=== PATIENT | female | born 1960 | race Caucasian/White ===

== ENCOUNTER → 2016-12-05 | Outpatient (CLI) | payer BC | LOC: WI 10:27 | PROVIDERS: ATTEND Internal Medicine | DX: Z12.31 Encounter for screening mammogram for malignant neoplasm of breast (principal); Z79.899 Other long term (current) drug therapy | CPT/HCPCS: 77067; G0202 ==

== ENCOUNTER → 2016-12-21 | Outpatient (CLI) | payer BC | LOC: WI 09:16 | PROVIDERS: ATTEND Internal Medicine | DX: N63 Unspecified lump in breast (principal) | CPT/HCPCS: 76642; G0204 ==

== ENCOUNTER → 2017-04-20 | Outpatient (CLI) | payer BC ==
--- NOTE | 2017-04-20 10:13 | WOMENS IMAGING REPORT ---
EXAM DESCRIPTION: U/S BREAST UNILAT LIMITED COMPLETED DATE/TIME: 04/20/2017 9:42 am REASON FOR STUDY: UNSPECIFIED LUMP IN LEFT BREAST; N63 N63 UNSPECIFIED LUMP IN BREAST COMPARISON: November 2016 TECHNIQUE: Real-time and static grayscale imaging performed of the left breast targeted to the area of clinical/mammographic concern. Selected color Doppler images recorded. LIMITATIONS: None. FINDINGS: MASS: At the approximate 7 8 o'clock position in the left breast a small cyst is identifie d measuring 1.2 x 0.8 x 1.3 cm in diameters. A cyst at this site was identified on the previous stud y. No other discrete solid or cystic masses are identified. OTHER: No other significant finding. IMPRESSION: Small left breast cyst as noted above BIRAD: 2 Benign findings. RECOMMENDATION: RECOMMENDED FOLLOW-UP: Follow-up as clinically indicated. COMMENT: The [employer] ([employer]) has developed recommendations for screening MRI of the breasts in certain patient populations, to be used in conjunction with mammography. Breast MRI s urveillance may be appropriate for women with more than 20% lifetime risk of developing breast cancer as determined by genetic testing, significant family history of the disease, or history of mantle r adiation for Hodgkins Disease. ACR Practice Guidelines 2008. TECHNICAL DOCUMENTATION: JOB ID: [id number] [employer]- All Rights Reserved
== END ==
LOC: WI 09:01
PROVIDERS: ATTEND Internal Medicine
DX: N63 Unspecified lump in breast (principal)
CPT/HCPCS: 76642

== ENCOUNTER → 2017-09-01 | Outpatient (CLI) | payer BC ==
--- NOTE | 2017-09-01 14:17 | WOMENS IMAGING REPORT ---
EXAM DESCRIPTION: U/S BREAST UNILAT LIMITED COMPLETED DATE/TIME: 09/01/2017 1:53 pm REASON FOR STUDY: SOLITARY CYST OF LEFT BREAST N60.02 SOLITARY CYST OF LEFT BREAST COMPARISON: 04/20/2017 and 12/21/2016. TECHNIQUE: Real-time and static grayscale imaging performed of the left breast targeted to the area of clinical/mammographic concern. Selected color Doppler images recorded. LIMITATIONS: None. FINDINGS: MASS: The previously seen simple cyst in the 7-8 o'clock location is no longer present. N o mass identified. Normal glandular tissue. OTHER: No other significant finding. IMPRESSION: No suspicious findings detected by ultrasound. Previously seen simple cyst in the lower inner breast is no longer present. BIRAD: 1 Negative. RECOMMENDATION: RECOMMENDED FOLLOW-UP: Follow-up as clinically indicated. COMMENT: The [employer] ([employer]) has developed recommendations for screening MRI of the breasts in certain patient populations, to be used in conjunction with mammography. Breast MRI s urveillance may be appropriate for women with more than 20% lifetime risk of developing breast cancer as determined by genetic testing, significant family history of the disease, or history of mantle r adiation for Hodgkins Disease. A[employer] Practice Guidelines 2008. TECHNICAL DOCUMENTATION: JOB ID: [id number] [employer]- All Rights Reserved
== END ==
LOC: WI 13:24
PROVIDERS: ATTEND Internal Medicine
DX: N63.24 Unspecified lump in the left breast, lower inner quadrant (principal)
CPT/HCPCS: 76642

== ENCOUNTER 2017-12-03 10:30 | Emergency (ER) | payer SELFPAY ==
[2017-12-03] MEDS ORDERED: IBUPROFEN 600 MG TABLET PO ONE (10:58)
[2017-12-03] MEDS ORDERED: IPRATROPIUM/ALBUTEROL 0.5-2.5 MG/3 ML AMPUL NEB ONE (10:58)
[2017-12-03] MEDS ORDERED: PREDNISONE 20 MG TABLET PO ONE (10:58)
--- NOTE | 2017-12-03 11:02 | ER Document Report ---
HPI - HPI Patient complains to provider of: Cough Onset: Other - 2 weeks Onset/Duration: Persistent Quality of pain: Achy Pain Level: 5 Context: Patient presents complaining of occasionally productive cough for the past 2 weeks. Patient does have a history of COPD and reports increased sputum production and cough. Patient denies any fever. Patient additionally reports right jaw pain at her TMJ joint. Patient states that the pain will come and go and is occasionally very sharp. Patient denies any dental problems. Associated Symptoms: Productive cough, Other - Right jaw pain. denies: Chest pain, Earache, Fever, Headache, Nausea, Vomiting Exacerbated by: Movement Relieved by: Denies Similar symptoms previously: Yes Recently seen / treated by doctor: No - ROS ROS below otherwise negative: Yes Systems Reviewed and Negative: Yes All other systems reviewed and negative - CONSTITUTIONAL Constitutional: DENIES: Fever - EENT EENT: DENIES: Sore Throat Notes: Jaw pain - NEURO Neurology: DENIES: Headache - RESPIRATORY Respiratory: REPORTS: Coughing. DENIES: Trouble Breathing - GASTROINTESTINAL Gastrointestinal: DENIES: Nausea, Patient vomiting, Diarrhea - REPRODUCTIVE Reproductive: DENIES: : - MUSCULOSKELETAL Musculoskeletal: DENIES: Back Pain, Neck Pain - DERM Skin Color: Normal Skin Problems: None Past Medical History - General Information source: Patient - Social History Smoking Status: Current Every Day Smoker - 2 packs per day Smoking Education Provided: Yes Frequency of alcohol use: None Drug Abuse: None Occupation: cleaning Lives with: Family Family History: Reviewed & Not Pertinent - Past Medical History Cardiac Medical History: Reports: Hx Hypercholesterolemia Pulmonary Medical History: Reports: Hx COPD Endocrine Medical History: Reports: Hx Hypothyroidism Surgical Hx: Negative - Immunizations Immunizations up to date: Yes Hx Diphtheria, Pertussis, Tetanus Vaccination: Yes Vertical Provider Document - CONSTITUTIONAL Agree With Documented VS: Yes Exam Limitations: No Limitations General Appearance: WD/WN, No Apparent Distress - INFECTION CONTROL TRAVEL OUTSIDE OF THE [place] IN LAST 30 DAYS: No - HEENT HEENT: Atraumatic, Normocephalic. negative: Pharyngeal Exudate, Pharyngeal Tenderness, Pharyngeal Erythema, Tympanic Membrane Red, Tympanic Membrane Bulging Notes: R TMJ joint tenderness, no crepitus - NECK Neck: Normal Inspection, Supple. negative: Lymphadenopathy-Left, Lymphadenopathy-Right - RESPIRATORY Respiratory: No Respiratory Distress, Chest Non-Tender, Rhonchi, Wheezing O2 Sat by Pulse Oximetry: 96 - CARDIOVASCULAR Cardiovascular: Regular Rate, Regular Rhythm, No Murmur - BACK Back: Normal Inspection - MUSCULOSKELETAL/EXTREMETIES Musculoskeletal/Extremeties: MAEW - NEURO Level of Consciousness: Awake, Alert, Appropriate Motor/Sensory: No Motor Deficit - DERM Integumentary: Warm, Dry, No Rash Course - Re-evaluation Re-evalutation: 12/03/17 12:15 Patient reports that jaw pain is resolved after Tylenol. Discussed the concerns with patient about possible TMJ arthropathy but also discussed the possibility of other pathology such as trigeminal neuralgia. Patient encouraged to follow-up with her primary doctor tomorrow for recheck of her jaw pain symptoms. Patient without any dental tenderness, no concern for abscess. No concern for otitis media or externa. Patient with cough symptoms concerning for COPD exacerbation. Discussed with patient importance of smoking cessation. Discussed worsening symptoms that she should return medially for. Patient verbalized understanding and agrees with plan of care. - Vital Signs Vital signs: Temp Pulse Resp BP Pulse Ox 98.4 F 84 20 118/63 96 12/03/17 10:35 12/03/17 10:35 12/03/17 10:35 12/03/17 10:35 12/03/17 10:35 - Diagnostic Test Radiology reviewed: Reports reviewed Discharge - Discharge Clinical Impression: COPD exacerbation TMJ arthralgia Qualifiers: Laterality: right Qualified Code(s): M26.621 - Arthralgia of right temporomandibular joint Condition: Stable Disposition: HOME, SELF-CARE Instructions: Acetaminophen, Chronic Obstructive Lung Disease ([facility]), Inhaled Bronchodilators ([facility]), Steroid Medication, Temporomandibular Joint Syndrome ([facility] ) Additional Instructions: Return immediately for any new or worsening symptoms Followup with your primary care provider, call tomorrow to make a followup appointment Follow-up with Dr. Meehan tomorrow for recheck. Discussed with him your jaw pain symptoms. Prescriptions: Doxycycline Hyclate 100 mg PO BID #20 capsule Naproxen [Naprosyn 250 Nmg Tablet] 1 tab PO BID #14 tablet Prednisone [Deltasone 20 mg Tablet] 2 tab PO DAILY 4 Days tablet Forms: Smoking Cessation Education, Return to Work Referrals: CHELE MEEHAN MD [Primary Care Provider] - Follow up tomorrow
--- NOTE | 2017-12-03 11:31 | RADIOLOGY REPORT (SQ) ---
EXAM DESCRIPTION: CHEST PA/LAT COMPLETED DATE/TIME: 12/03/2017 11:17 am REASON FOR STUDY: cough COMPARISON: None. NUMBER OF VIEWS: Two view. TECHNIQUE: Frontal and lateral radiographic views of the chest acquired. LIMITATIONS: None. FINDINGS: LUNGS AND PLEURA: No opacities, masses or pneumothorax. No pleural effusion. Attenuated bl ood vessels and flattened annette-diaphragms. MEDIASTINUM AND HILAR STRUCTURES: No masses. No contour abnormalities. HEART AND VASCULAR STRUCTURES: Heart normal in size and contour. No evidence for failure. BONES: No acute findings. HARDWARE: None in the chest. OTHER: No other significant finding. IMPRESSION: COPD. NO ACUTE RADIOGRAPHIC FINDING IN THE CHEST. TECHNICAL DOCUMENTATION: JOB ID: [id number] [employer]- All Rights Reserved Reading location - IP/workstation name: [email or web address]
[2017-12-03 12:20] VITALS: BP 106/68
== END 2017-12-03 12:35 | disposition home or self-care (01) ==
LOC: ER 10:30
DX: J44.1 Chronic obstructive pulmonary disease with (acute) exacerbation (principal); M26.621 Arthralgia of right temporomandibular joint; R05 Cough; F17.200 Nicotine dependence, unspecified, uncomplicated
CPT/HCPCS: 94640; 99283; 71046; J7512; J7620